=== PATIENT | male | born 1980 | race Caucasian/White ===

== ENCOUNTER 2019-01-13 07:10 | Outpatient (CLI) | payer OTHER | END 2019-01-13 23:59 | disposition home or self-care (01) | LOC: CVU 07:10 | PROVIDERS: ATTEND Internal Medicine Cardiovascular Disease | DX: I08.3 Combined rheumatic disorders of mitral, aortic and tricuspid valves (principal); Z82.49 Family history of ischemic heart disease and other diseases of the circulatory system | CPT/HCPCS: 0399T; 93306 ==